=== PATIENT | female | born 1995 | race Caucasian/White ===

== ENCOUNTER 2023-07-02 19:59 | Emergency (ER) | payer BC, SELFPAY ==
[2023-07-02 20:08] VITALS: BP 152/88; PULSE 94; RESP 18; TEMP 36.8; O2SAT 100; BMI 36.0
[2023-07-02 20:19] LABS: Coronavirus 19, PCR Not Detected (NotDetected); Influenza A, PCR Not Detected (NotDetected); Influenza B, PCR Not Detected (NotDetected)
--- NOTE | 2023-07-02 20:19 | XR_ITS ---
PROCEDURE INFORMATION: Exam: XR Chest Exam date and time: 07/02/2023 8:48 PM Age: 27 years old Clinical indication: Cough and shortness of breath; Additional info: Cough, SOA TECHNIQUE: Imaging protocol: Radiologic exam of the chest. Views: 1 view. COMPARISON: No relevant prior studies available. FINDINGS: Lungs: Normal. Pleural spaces: Normal No pleural effusion. No pneumothorax. Heart/Mediastinum: Normal. No cardiomegaly. Bones/joints: Mild thoracic spine dextroscoliosis. IMPRESSION: No acute findings.
--- NOTE | 2023-07-02 20:19 | HMH.EDGENADL ---
Discharge Plan Disposition Chief Complaint: Shortness of Breath/Dyspnea Referrals Follow up/Referrals: Ruby Fernandez APRN [Primary Care Provider] - See instructions Activity Restrictions/Add. Instructions Additional Instructions/Restrictions: At this time it was felt you are safe to be discharged home. If new or worsening symptoms please do not hesitate to return the emergency department. Please continue to follow-up with your OB. Clinical Impressions Clinical Impression: Viral respiratory infection Discharge ED Provider: Serg Laguna General Adult HPI General Chief complaint: Shortness of Breath/Dyspnea Stated complaint: SOA, cough, congestion Time Seen by Provider: 07/02/23 20:06 Mode of Arrival: Ambulatory Source of Information: Patient Limitations: No Limitations Description of Symptoms (Recalled from ER Triage Doc. by RN): Pt ambulatory to ED with c/o cough and SOA X3 days. PT 20wks . Pt reports SOA being worse with exertion. PT states she was seen by OB today and was started on Z-morgan. Pt states she had one episode of N/V today and this is typical with her . Pt states she had covid at beginning of her and was started on baby aspirin daily. Pt denies abd pain/cramping. History of Present Illness HPI narrative: Patient is a 27-year-old female with no pertinent past medical history currently 20 weeks who presents emergency department for evaluation of shortness of breath. Patient has had a cough for the last few days, was seen by her primary OB on Friday and started with a Z-Morgan for presumed bronchitis. Due to persistent symptoms worse with ambulation she presents here for continued evaluation. Denies abdominal pain or vaginal bleeding. Related Data Allergies Allergy/AdvReac Type Severity Reaction Status Date / Time No Known Allergies Allergy Verified 07/02/23 20:14 [facility] Disclaimer: The information contained in this section may have been updated after the patient was seen, as this information can be updated by other users. Social History Smoking Status: Unknown if ever smoked alcohol intake: never current occupational status: other Travel in the last 8 weeks: None ROS Obtained: Yes Systems reviewed as appropriate & no additional complaints except as documented Physical Exam General General appearance: alert and in no apparent distress Head Head exam: atraumatic and normocephalic Eye Eye exam: Present PERRL and EOMI ENT ENT exam: Present mucous membranes moist Neck Neck exam: Present normal inspection Chest Chest inspection: Present normal inspection and symmetric chest wall rise Respiratory Respiratory exam: Present normal lung sounds bilaterally and other (Significant cough throughout evaluation); Absent respiratory distress Cardiovascular Cardiovascular exam: Present regular rate and normal rhythm Abdominal Exam Abdominal exam: Present soft Extremities Exam Extremities exam: Present normal inspection Neurological Exam Neurological exam: Present alert Psychiatric Psychiatric exam: Present normal affect Skin Skin exam: Present warm and dry Medical Decision Making Matthew Inquiry Pt receiving controlled substance: No Vital Signs: 07/02/23 20:08 07/02/23 20:32 Temperature 98.2 F Temperature Source Oral Pulse Rate 88 Pulse Rate [Left Radial] 94 H Respiratory Rate 18 Blood Pressure 155/87 H Blood Pressure [Right Arm] 152/88 H Blood Pressure Mean [Right Arm] 109 Blood Pressure Source [Right Arm] Automatic Cuff Blood Pressure Position [Right Arm] Supine 02 Sat by Pulse Oximetry 100 99 Oxygen Delivery Method Room Air Lab Data Lab Results 07/02/23 20:05: SARS-CoV-2 (PCR) Not detected, Influenza A Untype (PCR) Not detected, Influenza Type B (PCR) Not detected Orders (Tests/Meds): ORDERS Category Date Time Status CXR --portable [XR chest portable] Stat Exams 07/02/23 20:19 Completed Rapid PCR Cov
--- NOTE | 2023-07-02 20:28 | ECG_ITS ---
APPROVED REPORT Exam: Resting ECG HR:83 bpm ECG Measurements Heart Rate 83 AXES IL 154 P 57 QRSd 94 QRS 68 QT 365 T 16 QTc 405 Conclusion SINUS RHYTHM NONSPECIFIC ST & T-WAVE ABNORMALITY BORDERLINE ECG UNCONFIRMED REPORT Electronically signed by : Zack Ochoa MD 07/03/2023 14:48:23
[2023-07-02 20:32] VITALS: BP 155/87; PULSE 88; O2SAT 99
[2023-07-02 21:00] VITALS: BP 147/78; PULSE 106; O2SAT 97
[2023-07-02 21:30] VITALS: BP 118/80; PULSE 93; O2SAT 97
--- NOTE | 2023-07-02 21:37 | PC.NURSE ---
ambulatory o2 99%
[2023-07-02 22:00] VITALS: BP 120/76; PULSE 85; O2SAT 98
[2023-07-02 22:06] VITALS: BP 120/76; PULSE 83; RESP 20; TEMP 36.8; O2SAT 98
== END 2023-07-02 22:07 | disposition home or self-care (01) ==
PROVIDERS: Emergency Provider Emergency Medicine; PCP Nurse Practitioner Family
DX: O99.512 Diseases of the respiratory system complicating pregnancy, second trimester (principal); R05.9 Cough, unspecified; R06.02 Shortness of breath; J98.8 Other specified respiratory disorders; Z3A.20 20 weeks gestation of pregnancy
CPT/HCPCS: 71045; 87636; 93005; 99284